=== PATIENT | male | born 1935 | race Caucasian/White ===

== ENCOUNTER 2024-06-09 15:45 | Observation (INO) | payer OTHER, SELFPAY ==
[2024-06-09 09:03] VITALS: BP 124/86
--- NOTE | 2024-06-09 09:30 | ED.GENMED ---
History of Present Illness
General
Chief Complaint: Musculo-Skeletal Complaint
Time Seen by Provider: 06/09/24 09:09
History of Present Illness
History of Present Illness:
89-year-old male with history of arthritis, CAD status post CABG, A-fib on Coumadin and sotalol presenting for left ankle pain. Patient reports pain ongoing for several days, however today had difficulty going from sitting to standing position and
bearing weight. Son at bedside notes chronic issues with arthritis and chronic back pain, recently started on tramadol, so has had underlying issues with musculoskeletal pain. Denies any numbness or tingling to the foot or ankle. Denies any
fever. Does report history of gout in the past. Denies additional acute medical complaints such as chest pain, difficulty breathing, abdominal pain. Has not tried anything for pain today.
Phy Exam
Physical Exam
Physical Exam:
General: Well-appearing, no clinical signs of dehydration, nontoxic and in no acute distress
HEENT: protecting airway
Neck: appears supple
CV: Normal heart rate, regular rhythm, no evidence of cyanosis
Resp: No accessory muscle use, no increased work of breathing
Abd: no distension
Extremities: Generalized swelling to bilateral ankles, symmetric. No erythema or warmth to ankle joints. Tenderness to the left lateral ankle with range of motion limited secondary to pain. Distal sensation and pulses intact.
Neuro: alert, no focal neurologic deficit
: deferred
Rectal: deferred
Psych: Normal affect
Skin: Intact emergency
Course
Orders/Labs/Results
Orders:
Orders
06/09/24 09:10
Ankle, left 3 view CR [CR Ankle - Left Min 3 Views ] Urgent
Comment:
Reason For Exam: pain no injury
PT Consult [Pt Eval And Treat] Urgent
Activity Level: Ambulate
06/09/24 09:26
Foot, Left 3 View [CR Foot - Left Min 3 Views] Urgent
Comment:
Reason For Exam: generalized pain
06/09/24 09:34
Tramadol HCl [Ultram] 50 mg PO NOW STA
06/09/24 09:57
CRP [C-Reactive Protein] Urgent
Complete Blood Count/With Diff Urgent
Comprehensive Metabolic Panel Urgent
ESR [Erythrocyte Sed Rate] Urgent
Prothrombin Time Urgent
Uric Acid Urgent
06/09/24 11:44
HYDROmorphone [Dilaudid] 1 mg IV NOW STA
06/09/24 12:26
Case Management Consult ONCE
Case Management Consult: Usp Placement
06/09/24 12:31
CT Lower Ext W/o Iv Cont Lt Urgent
Comment:
Reason For Exam: ankle, pain, unable to bear weight
06/09/24 12:43
Fluid Culture with Gram Stain Urgent
TEO Source: Joint Fluid
Specimen Description:
Date Specimen was Collected: 06/09/24
Time Specimen was Collected: 12:37
Abnormal Lab Results
06/09/24
09:57
RBC 3.77 L 10^6/uL
(4.70-6.10)
Hgb 11.5 L g/dL
(13.0-18.0)
Hct 35.3 L %
(39.0-52.0)
MCHC 32.6 L g/dL
(33.0-37.0)
Plt Count 110 L 10^3/uL
(130-400)
MPV 11.3 H fL
(7.4-10.4)
Immature Gran % 0.6 H %
(0-0.5)
ESR 38 H mm/hour
(0-20)
PT 35.0 H Sec
(11.4-14.6)
BUN 35 H mg/dl
(9-20)
Creatinine 1.4 H mg/dL
(0.7-1.3)
Glucose 105 H mg/dl
(70-99)
Total Bilirubin 1.5 H mg/dl
(0.2-1.3)
C-Reactive Protein 42.50 H mg/L
(0.0-10.00)
06/09/24 09:57
06/09/24 09:57
Vital Signs
Initial and Last Documented VS:
Initial Vital Signs
Temp Pulse Resp BP Pulse Ox
98.3 F 67 16 124/86 98
06/09/24 09:03 06/09/24 09:03 06/09/24 09:03 06/09/24 09:03 06/09/24 09:03
Last Documented Vital Signs
Temp Pulse Resp BP Pulse Ox
98.3 F 59 18 143/55 97
06/09/24 09:03 06/09/24 11:40 06/09/24 11:40 06/09/24 11:40 06/09/24 11:40
Procedures
Incision/Drainage/Joint Aspiration
Left Ankle:
Preparation: cleaned with alcohol wipe
Type of procedure: aspiration
How much fluid was obtained?: number in mls (10)
Fluid description: bloody
Treatment: bandaid applied
MDM/Problems Addressed
MDM/Problems Addressed:
89-year-old male with history of arthritis presenting for left ankle pain. Vital signs are normal
On exam patient is resting comfortably, no acute distress. Overall benign examination of the left ankle. No present signs for infection without erythema or warmth. No cellulitic changes. No signs of trauma or malalignment. No neurovascular
compromise with intact pulses and sensation. Range of motion is limited from pain. Ultimately suspect pain from underlying arthritis, known history. Lower suspicion for a septic arthritis. Will screen with laboratory analysis. Will obtain x-ray
imaging.
11:10 -x-ray consistent with arthritis. No signs of fracture. No leukocytosis on laboratory analysis, however CRP and ESR elevated. Patient seen by PT, significant pain when trying to bear weight, recommending SNF. In the setting of elevated
inflammatory markers and difficulty with weightbearing, did consider arthrocentesis. Patient consented for procedure, however mentioned that last time he got lidocaine, almost went into shock. In discussion with orthopedics, recommending
arthrocentesis without lidocaine
12:20 -arthrocentesis performed, no purulent fluid obtained, only blood, hemarthrosis. Will send for fluid analysis. Will consult with case management for SNF placement and also obtain a CT of the ankle to rule out occult fracture
13:45 -CT without any definitive fracture. Patient seen by case management, again plan for SNF, however unable to place today. Plan for admission
*Critical Care Note
Total Time (30-74mins, 75-104mins- exclusive of procedures): Not Applicable
ED Attending Note
-
Portions of this chart may have been created with voice recognition software.� Occasional wrong word or��sound alike� substitutions may have occurred due to the inherent limitations of voice recognition software.
Discharge Plan
Departure
Referrals:
Daren Catalan MD [Family Provider] -
Interventions
Interventions:
*Risk Screen - Suicide Last Done: 06/09/24 09:03
*General Assessment Last Done: 06/09/24 09:03
*Neglect/Abuse Screening Last Done: 06/09/24 09:03
*ED COVID-19 Vaccine History Last Done: 06/09/24 09:03
ED-Musculoskeletal Assessment Last Done: 06/09/24 10:51
Discharge Date and Time
Print Language: ROMANSH
[2024-06-09] MEDS: ULTRAM 50 MG PO ×2 (10:00→21:06)
[2024-06-09 10:24] LABS: % Basophils 0.4 % (0-2); % Eosinophils 1.6 % (0-6); % Immature Granulocytes 0.6 % (0-0.5); % Lymphocytes 23.4 % (20.5-51.1); % Monocytes 8.3 % (1.7-9.3); % Neutrophils 65.7 % (42.2-75.2); Absolute Eosinophils 0.1 10^3/uL (0-0.7); Absolute Lymphocytes 1.6 10^3/uL (1.2-3.4); Absolute Monocytes 0.6 10^3/uL (0.1-0.6); Absolute Neutrophils 4.5 10^3/uL (1.4-6.5); Hematocrit 35.3 % (39.0-52.0); Hemoglobin 11.5 g/dL (13.0-18.0); Mean Corp Hgb Conc. 32.6 g/dL (33.0-37.0); Mean Corpuscular Hgb 30.5 pg (27.0-31.0); Mean Corpuscular Volume 93.6 fL (80.0-94.0); Mean Platelet Volume 11.3 fL (7.4-10.4); Nucleated Red Blood Cells % 0 % (-); Platelet Count 110 10^3/uL (130-400); Red Blood Cell Count 3.77 10^6/uL (4.70-6.10); White Blood Cell Count 6.8 10^3/uL (4.8-10.8)
[2024-06-09 10:29] LABS: INR 3.51
[2024-06-09 10:40] LABS: ALT (SGPT) 12 U/L (0-50); AST (SGOT) 25 U/L (17-59); Albumin 3.9 g/dl (3.5-5.0); Alkaline Phosphatase 44 U/L (38-126); Blood Urea Nitrogen 35 mg/dl (9-20); Calcium 9.7 mg/dl (8.4-10.2); Carbon Dioxide 28 mmol/L (22-30); Chloride 99 mmol/L (98-107); Glucose 105 mg/dl (70-99); Potassium 5.1 mmol/L (3.5-5.1); Sodium 138 mmol/L (135-145); Total Bilirubin 1.5 mg/dl (0.2-1.3); Total Protein 6.6 g/dl (6.3-8.2); Uric Acid 6.8 mg/dl (3.5-8.5); eGFR 48.34
[2024-06-09 10:47] LABS: Erythrocyte Sed Rate 38 mm/hour (0-20)
[2024-06-09 11:40] VITALS: BP 143/55
[2024-06-09] MEDS: DILAUDID 1 MG IV (11:52)
--- NOTE | 2024-06-09 14:06 | HPS.HSE ---
Family Physician
-
Family Physician: Daren Catalan
Chief Complaint
-
Left ankle pain
History of Present Illness
Patient is an 89-year-old male with past medical history significant for osteoarthritis, gout, heart failure, CAD with CABG, atrial fibrillation, and BPH who presented to [place] ED for evaluation of new onset left ankle pain with inability to
bear weight. Patient and family assisted in HPI. Patient has had some mild discomfort in left ankle for past few days, this morning it worsened to the point he was unable to ambulate or bear weight. Patient has history of back pain and has been
having increased discomfort in recent days, utilizes a cane to ambulate at home. Patient denies any fever, chills, cough, chest pain, nausea, vomiting, constipation, diarrhea or urinary symptoms.
Medical History
Past Medical History
Past Medical History: Reports Other
Additional Past Medical History:
osteoarthritis
gout
heart failure
CAD
atrial fibrillation
BPH
Past Surgical History: Reports Other
Additional Past Surgical History:
CABG
bilateral rotator cuff repairs
bilateral knee
Social History
Tobacco: Former Smoker (quit 52 years ago)
Alcohol: Occasional
Drug: None
Personal:
Living: With Family
Employment: Retired
Family History
Family History: Not pertinent
Allergies / Home Medications
Allergies reflects when Allergies were last updated in [facility].
Home Medications with original date entered in [facility]
Allergy/Medication List:
Allergies
Allergy/AdvReac Type Severity Reaction Status Date / Time
lidocaine Allergy Severe Anaphylaxis Verified 06/09/24 11:31
acetaminophen [From Percocet] Allergy anxiety, Verified 07/16/10 09:02
restlessness
iodine Allergy pt denies Verified 07/16/10 09:02
iodine
allergy
oxycodone HCl [From Percocet] Allergy anxiety, Verified 07/16/10 09:02
restlessness
contrast dye Allergy Unknown Uncoded 07/16/10 08:42
Home Medications
acetaminophen 325 mg capsule 650 mg PO Q8HPRN PRN pain 06/09/24
fenofibrate micronized 134 mg capsule 134 mg PO DAILY 06/09/24
furosemide 20 mg tablet 20 mg PO DAILY 06/09/24
sotalol 160 mg tablet 160 mg PO DAILY 06/09/24
tamsulosin 0.4 mg capsule (Flomax) 0.4 mg PO DAILY 06/09/24
tamsulosin 0.4 mg capsule (Flomax) 0.4 mg PO HS 06/09/24
tramadol 50 mg tablet 50 mg PO Q6H PRN pain 06/09/24
warfarin 2 mg tablet 2 mg PO DAILY 06/09/24
Review of Systems
-
History Source: Patient and Family
Constitutional: Reports No Symptoms
EENT: Reports No Symptoms
Respiratory: Reports No Symptoms
Cardiac: Reports No Symptoms
Abdomen/GI: Reports No Symptoms
: Reports No Symptoms
Musculoskeletal: Reports Joint Pain (left ankle), Joint Swelling (left ankle) and Edema (bilateral ankles and feet)
Skin: Reports No Symptoms
Neurological: Reports No Symptoms
Endocrine: Reports No Symptoms
Hematologic/Lymphatic: Reports No Symptoms
Psych: Reports No Symptoms
Physical Exam
Vital Signs
Vital Signs
Temp Pulse Resp BP Pulse Ox
98.3 F 59 18 143/55 97
06/09/24 09:03 06/09/24 11:40 06/09/24 11:40 06/09/24 11:40 06/09/24 11:40
Physical Exam
General: Well Developed, Well Nourished, No Apparent Distress, Comfortable and Conversant
HEENT: NormoCephalic, Moist mucous membranes, Atraumatic, Nose Appears Normal, Ears Appear Normal and Neck Nontender
Respiratory: Clear and Non Labored Respirations
Cardiac: S1/S2 and Regular Rhythm; No Murmur, Rub or Gallop
Breast: Deferred by me
GI: Soft, Non Tender, Non Distended and Normal Bowel Sounds; No Organomegaly
Rectal: Deferred by Provider
Genito-urinary: Deferred by me
Musculoskeletal: No Clubbing, No Cyanosis, Edema, Left Lower Extremity (ankle and foot) and Edema, Right Lower Extremity (ankle and foot )
Skin: Warm and IV/Catheter Site; No Rash
Neuro: Awake, Alert, AO x 3 and Nonfocal/grossly intact
Psych: Calm
Laboratory Results
-
06/09/24 09:57
06/09/24 09:57
Laboratory Results
PT 35.0 Sec (11.4-14.6) H 06/09/24 09:57
INR 3.51 06/09/24 09:57
Total Bilirubin 1.5 mg/dl (0.2-1.3) H 06/09/24 09:57
AST 25 U/L (17-59) 06/09/24 09:57
ALT 12 U/L (0-50) 06/09/24 09:57
Alkaline Phosphatase 44 U/L (38-126) 06/09/24 09:57
Data Reviewed
-
Diagnostic Radiology: Report Reviewed by me (L Ankle: No acute fracture or malalignment; Foot: No acute osseous abnormality identified.)
CT Scan: Report Reviewed by me (Lower L Extremity: No definitive acute fracture identified.. Mild tibiotalar chondrocalcinosis Moderate edematous change of the soft tissues mostly of the left foot)
Lab Data: Labs Reviewed by me (BUN 35, Creat 1.4)
Impression/Plan
-
IMPRESSION/PLAN:
#left ankle pain with edema and inability to bear weight
#ddx gout flare vs. septic arthritis
#osteoarthritis
#gout
L Ankle X-Ray: No acute fracture or malalignment.
L Foot X-Ray: No acute osseous abnormality identified. No acute osseous abnormality identified
L Lower ext CT: No definitive acute fracture identified.
Mild tibiotalar chondrocalcinosis
Moderate edematous change of the soft tissues mostly of the left foot
- Admit to Med/Surg for observation
- PT consult
- Case management consult
- Prednisone 40mg
#JANIE vs CKD
BUN 35, Creat 1.4
baseline unknown, family unaware of renal disease
- monitor BMP
#heart failure
- continue furosemide
#atrial fibrillation
- continue warfarin, and sotalol
#BPH
- continue tamsulosin
#CAD
s/p CABG
- continue fenofibrate
Code Status: DNR
DVT Prophylaxis: Warfarin
--- NOTE | 2024-06-09 15:11 | W.PN.UPDATE ---
Addendum entered and electronically signed by Humberto Blue MD 06/09/24 18:12:
INR 3.5. Coumadin held for tonight.
Original Note:
Update Note
Progress Note Update
This is an addendum to the H&P written by Edel Frank on 06/09/2024. Patient seen and examined independently with ORTHOPEDIC TECH.
89-year-old male past medical history of gout, CAD status post CABG, A-fib on Coumadin, arthritis, CHF, BPH, presenting with left ankle pain for few days with difficulty bearing weight.
Inflammatory markers elevated. X-ray of the foot showed no acute abnormality. Patient underwent arthrocentesis with drainage of 10 cc of blood. Fluid studies sent. Ortho recommended CT scan which showed no evidence of fracture.
Labs show likely CKD.
Presentation consistent with gout. Will start prednisone. PT/OT and case management for rehab placement.
[2024-06-09 15:30] VITALS: BP 125/81
--- NOTE | 2024-06-09 16:10 | CM ---
CM met with patient and family in room. Patient and family would prefer [facility] for discharge. CM attempted placement at [facility] and [facility] . There were no available beds. CM will sent a referral to [facility] for consideration.
PLAN: SNF
[2024-06-09 17:28] VITALS: BP 146/77
--- NOTE | 2024-06-09 18:10 | PTCARENOTE ---
Pt was received from ED. Pt stood up and pivoted to the bed with assistance of 2 and a RW. Severe pain on left ankle. Pt resting in bed, continuing to have pain. Waiting for pain medications to be confirmed by pharmacy. Pt ordering dinner. Call [facility]
in reach.
[2024-06-09] MEDS: DILAUDID 0.5 MG IV ×2 (18:26→23:09)
[2024-06-09] MEDS: DELTASONE 40 MG PO (18:26)
[2024-06-09 19:59] VITALS: BP 116/57
[2024-06-09] MEDS: FLOMAX 0.4 MG PO (20:02)
[2024-06-09] MEDS: BETAPACE 160 MG PO (20:02)
[2024-06-09 23:43] VITALS: BP 130/64
[2024-06-10] VITALS (8 sets, daily range): BP systolic 101–118; BP diastolic 52–62; PULSE 51; BMI 30.7
[2024-06-10 07:57] LABS: Hematocrit 32.8 % (39.0-52.0); Hemoglobin 11.2 g/dL (13.0-18.0); Mean Corp Hgb Conc. 34.1 g/dL (33.0-37.0); Mean Corpuscular Volume 90.9 fL (80.0-94.0); Mean Platelet Volume 11.6 fL (7.4-10.4); Platelet Count 104 10^3/uL (130-400); Red Blood Cell Count 3.61 10^6/uL (4.70-6.10); Red Cell Dist. Width 13.5 % (11.5-14.5); White Blood Cell Count 6.7 10^3/uL (4.8-10.8)
[2024-06-10] MEDS: TRICOR 145 MG PO (08:16)
[2024-06-10] MEDS: BETAPACE 160 MG PO (08:16)
[2024-06-10] MEDS: DELTASONE 40 MG PO (08:19)
[2024-06-10 08:32] LABS: PT 52.6 Sec (11.4-14.6)
[2024-06-10 08:36] LABS: Blood Urea Nitrogen 36 mg/dl (9-20); Calcium 9.4 mg/dl (8.4-10.2); Carbon Dioxide 26 mmol/L (22-30); Chloride 98 mmol/L (98-107); Estimated Creatinine Clearance 48 ml/min; Glucose 167 mg/dl (70-99); INR 6.02; Sodium 133 mmol/L (135-145); eGFR 58.17
[2024-06-10] MEDS: LASIX 20 MG PO (09:15)
--- NOTE | 2024-06-10 10:12 | CM ---
Addendum entered by Taye Bernal 06/10/24 15:08:
Pt's spouse confirmed that as of 05/29/24, pt has a Medicare advantage plan and has spoken w/ insurance rep who confirmed that pt's rehab stay will be covered.
CM left message w/ admissions to correct display of insurance as it is showing Medicare as secondary and [employer] as primary.
CM clarified that given advantage plan, pt's OBS status is irrelevant to rehab and will just require an insurance auth
[employer] form reviewed, copy in chart
[facility] pt for [facility] and will confirm bed availability on day of d/c.
Plan: [facility]; pending bed on day of d/c and auth approval
Original Note:
CM spoke w/ pt's spouse regarding d/c plan. Pt is being recommended for rehab at this time, however, pt is currently admitted in OBS status.
CM explained to spouse that rehab would be private pay if pt remains in OBS status. CM explained there is a criteria to meet while in the hospital to be changed to IP status. CM is unsure if pt will remain as OBS but was clear w/ spouse that rehab
would be private cost. Spouse shared they are unable to privately pay for rehab. CM suggested home PT as an alternative option. Pt prev was known to [facility].
CM will cont to follow for d/c planning
Plan: SNF vs home PT
[2024-06-10] MEDS: MEPHYTON 1 MG PO (13:27)
[2024-06-10] MEDS: TYLENOL 650 MG PO ×2 (13:27→23:50)
--- NOTE | 2024-06-10 16:35 | W.PN.HOSP.TC ---
Today's Communication/Plan
-
Orthopedics evaluation pending
Continue steroids
PT OT
1 mg vitamin K
Assessment / Plan
Assessment / Plan
89-year-old male with left ankle pain
CT of the ankle-mild tibiotalar chondrocalcinosis. Moderate edematous changes in the soft tissues mostly in the left foot.
Left ankle no edema. states that the edema has markedly gone down
Cardiovascular system S1-S2 appreciated
Chest clear to auscultation
Abdomen soft and nontender
# Left ankle pain with difficulty ambulating
Likely flare of gout arthrocentesis by ER Only blood obtained
I spoke to hematology lab. The fluid was sent in a syringe to the lab was a large clot. No purple tube. Therefore chemistries and crystals were canceled
Cultures negative so far. Gram stain with no organisms
History of gout in the past
Continue prednisone
Orthopedic evaluation
OT PT evaluation
# Coumadin induced coagulopathy-hold Coumadin. 1 mg p.o. vitamin K. No active bleeding
# Mild tfyzvoaejqzeoldc-pvajtt-rfzviys
# Acute kidney injury-resolving
# Coronary disease-history of bypass
# Paroxysmal atrial fibrillation-continue sotalol. Hold Coumadin
# Enlarged prostate-continue Flomax
# Hyperlipidemia-continue fenofibrate
# Diabetes-check hemoglobin A1c
# DVT prophylaxis-elevated INR
# DNR
Discussed with nursing
Discussed with case management
Discussed with patient's at bedside
Anticipated Discharge: Within 24 hours
Subjective/Interval History
-
Date of Service: June 10, 2024
Objective Data
-
Labs:
Laboratory Results
06/10/24
06:47
WBC 6.7
Hgb 11.2 L
Hct 32.8 L
Plt Count 104 L
PT 52.6 H
INR 6.02 H* D
Sodium 133 L
Potassium 5.0
Chloride 98
Carbon Dioxide 26
BUN 36 H
Creatinine 1.2
Glucose 167 H
Calcium 9.4
Vital Signs:
Vital Signs
Temp Pulse Resp BP Pulse Ox
97.5 F 57 18 105/54 95
06/10/24 15:33 06/10/24 15:33 06/10/24 15:33 06/10/24 15:33 06/10/24 15:33
I&O
06/09/24 06/10/24 06/11/24
06:59 06:59 06:59
Intake Total 480 / 480 240 / 240
Output Total 325 / 325
Balance 155 / 155 240 / 240
--- NOTE | 2024-06-10 17:54 | CON.ORTHO ---
Consultation - Orthopedics
History
HPI: 89-year-old male history of coronary artery disease status post CABG, A-fib on Coumadin presents emergency department with complaints of left ankle pain and difficulty bearing weight. Denied any significant injury. There was some concern in
the emergency department given his increased inflammatory markers of possible septic arthritis. He underwent left ankle joint aspiration in the emergency department that yielded blood. He was admitted to the hospitalist service for further
evaluation and treatment. This evening patient reports that his pain is actually improved substantially. Reports that he is now able to bear some weight. He does report to me that they have made some arrangements for him to go to rehab facility.
Does report remote history of gout.
Allergies / Home Medications
Past medical history: Coronary artery disease status post CABG, A-fib, gout
Past surgical history: CABG, rotator cuff repair, knee surgery
Family history: Not pertinent
Social history: Lives at home with , retired, non-smoker
Allergy/AdvReac Type Severity Reaction Status Date / Time
lidocaine Allergy Severe Anaphylaxis Verified 06/09/24 11:31
acetaminophen [From Percocet] Allergy anxiety, Verified 07/16/10 09:02
restlessness
iodine Allergy pt denies Verified 07/16/10 09:02
iodine
allergy
oxycodone HCl [From Percocet] Allergy anxiety, Verified 07/16/10 09:02
restlessness
contrast dye Allergy Unknown Uncoded 07/16/10 08:42
�Medication �Instructions �Recorded
acetaminophen 325 mg capsule 650 mg PO Q8HPRN PRN pain 06/09/24
acetaminophen 650 mg 1,300 mg PO DAILYPRN PRN mild pain 06/09/24
tablet,extended release
cholecalciferol (vitamin D3) 25 25 mcg PO DAILY Supplement 06/09/24
mcg (1,000 unit) tablet (Vitamin
D3)
fenofibrate micronized 134 mg 134 mg PO DAILY High Cholesterol 06/09/24
capsule
furosemide 20 mg tablet 20 mg PO DAILYPRN PRN swelling 06/09/24
sotalol 160 mg tablet 160 mg PO BID Blood Pressure 06/09/24
tamsulosin 0.4 mg capsule (Flomax) 0.4 mg PO DAILY Urinary Issue 06/09/24
tramadol 50 mg tablet 50 mg PO Q6H PRN pain 06/09/24
warfarin 2 mg tablet 2 mg PO HS Blood Clot Prevention/Tx 06/09/24
Vital Signs / Lab Results
Temp Pulse Resp BP Pulse Ox
97.5 F 57 18 105/54 95
06/10/24 15:33 06/10/24 15:33 06/10/24 15:33 06/10/24 15:33 06/10/24 15:33
06/10/24 06:47
06/10/24 06:47
10 point review systems reviewed and negative unless otherwise stated
General: Pleasant, no acute distress
Musculoskeletal left lower extremity
Skin intact without significant erythematous skin changes overlying the foot and ankle
There is mild to moderate edema noted in the foot
Patient is able to actively plantarflex dorsiflex ankle without significant pain
There is mild tibiotalar joint line tenderness palpation
No substantial medial or lateral malleoli tenderness palpation
Diagnostic studies
X-rays CT scan left ankle reviewed by myself. X-rays show no fractures dislocations. No significant degenerative changes noted on plain radiographs. CT scan reveals some mild chondrocalcinosis some early degenerative changes.
Assessment / Plan
89-year-old male A-fib on Coumadin supratherapeutic, history of gout with left ankle pain. Aspiration yielded blood. Unfortunately aspiration sent to the lab was clotted and unable to perform further testing to include synovial white blood cell
count. Cultures are negative thus far. Suspect gout versus pseudogout given significant proven on prednisone. Also could be result of spontaneous hemarthrosis. Regardless patient's feeling improved. There is no role for acute orthopedic
intervention. Would treat symptomatically. Can follow-up with primary care physician on outpatient basis. Please reach out any questions or concerns.
[2024-06-10] MEDS: FLOMAX 0.4 MG PO (20:13)
[2024-06-10] MEDS: BETAPACE PO (20:21)
[2024-06-11 03:41] VITALS: BP 109/56
[2024-06-11 06:00] VITALS: BMI 30.5
[2024-06-11 07:44] LABS: INR 3.36; PT 33.8 Sec (11.4-14.6)
[2024-06-11 07:45] VITALS: BP 117/70
[2024-06-11] MEDS: LASIX 20 MG PO (09:10)
[2024-06-11] MEDS: BETAPACE 160 MG PO (09:11)
[2024-06-11] MEDS: DELTASONE 40 MG PO (09:11)
[2024-06-11] MEDS: TRICOR 145 MG PO (09:11)
[2024-06-11 11:40] VITALS: BP 130/69
--- NOTE | 2024-06-11 12:07 | CM ---
Addendum entered by Taye Bernal 06/11/24 14:27:
Hospitalist will hold d/c until tomorrow. [facility] will not have available bed tomorrow.
Discussed w/ spouse to consider other accepting facility, [facility]. Spouse agreeable to [facility] if there is an available bed for pt tomorrow.
TT [facility] to confirm if pt can be accepted tomorrow, awaiting response
Will need insurance auth
Plan: [facility], if bed is available tomorrow and pending auth
Original Note:
Chart reviewed for d/c planning. Additional referrals were sent yesterday to [facility] and [facility] per request from spouse.
Spoke w/ Jul[facility], has available bed today if pt can d/c today
Per hospitalist, pt can d/c today
Spoke w/ spouse at bedside w/ nurse, says pt is not feeling well today. Nurse to notify Dr. Pate. TT Dr. Pate regarding this.
Spouse is hopeful pt can d/c today as [facility] is preferred and she has experience w/ the facility.
Will await response from to confirm pt's d/c for today
--- NOTE | 2024-06-11 12:31 | CON.CAR ---
Addendum entered and electronically signed by Elbert Fuentes MD 06/11/24 15:48:
I saw and examined the patient.
The Hospice Liaison's note was reviewed and I agree with the note.
Comment:
GEN: No distress, awake, Ox3
HEENT: supple, anicteric, mmm
LUNGS: scatt rhonchi
CV: Irreg, S1/S2, 1/6 syst LSB, no gallop
ABD: soft, BS+, NT/ND
EXT: +1 edema
NEURO: Gross non-focal
SKIN: No rash
Plan:
89-year-old male with past medical history of CABG in 1995, paroxysmal atrial fibrillation on Coumadin chronic chronic heart failure preserved ejection ration, gout, and hypertension presents to [facility] due to left ankle pain. He has
been treated for gout/pseudogout. We were asked to evaluate him for bradycardia with atrial fibrillation. The patient currently denies any dizziness or lightheadedness. He has seen 2 previous cardiologists and then transitioned his care to .
[facility].
Records review preserved ejection fraction from the fall. He was previously post to be on sotalol 160 in the a.m. and 80 mg in the p.m.
With his slow heart rate in A-fib we will decrease the sotalol to 120 in the a.m. and 120 in the p.m. We will also evaluate whether switching him to Eliquis is cost feasible.
Continue treatments for gout. Blood pressure stable.
Volume status appears acceptable. Okay to continue low-dose diuretics with gout.
Continue prednisone.
Will review records regarding why not taking statin.
Original Note:
Consultation
Consultation Request
Date/Time Consultation Performed: 06/11/24
Requesting Provider: Dr. Pate
Performing Provider: Cara Sandoval PA-C for Dr. Fuentes
Reason for Consultation: bradycardia
Medical History
-
Chief Complaint: L ankle pain
History of Present Illness:
Patient is an 89 yo M with PMH of CAD status post CABG in 1995, paroxysmal atrial fibrillation on chronic Coumadin therapy, chronic heart failure with preserved EF, gout, osteoarthritis, BPH who presented to [facility] for evaluation of
left ankle pain. Reportedly was unable to bear weight. He was seen in consultation by orthopedics and ankle was aspirated with bloody fluid he is being treated with prednisone for gout versus pseudogout. Cardiology consulted as patient noted to
have baseline heart rates in the 50s, however transiently drops as low as the 30s. He is asymptomatic. He is chronically on sotalol 160 mg twice daily. Patient's reports that he followed in the past with a Dr. Chris Zamudio until recently
when he transitioned his care to see Dr. Alfaro of [place]. Patient and report he goes in and out of A-fib which is tracked through his Fit[employer]. Cardiology consulted for evaluation.
PMH:
PAF
Chronic sotalol therapy
Chronic Coumadin therapy
CAD s/p CABG 1995
Chronic heart failure with preserved EF
HLD
HTN
Gout
OA
BPH
Past Medical History
Past Medical History: Other (in HPI)
Social History
Tobacco: Former Smoker
Alcohol: Occasional
Personal:
Living: With Family
Employment: Retired
Family History
Family History: Reviewed & Not Pertinent
Allergies / Home Medications
Allergy/AdvReac Type Severity Reaction Status Date / Time
acetaminophen [From Percocet] Allergy anxiety, Verified 07/16/10 09:02
restlessness
iodine Allergy pt denies Verified 07/16/10 09:02
iodine
allergy
lidocaine Allergy Anaphylaxis Verified 06/10/24 20:19
oxycodone HCl [From Percocet] Allergy anxiety, Verified 07/16/10 09:02
restlessness
�Medication �Instructions �Recorded �Confirmed �Type
acetaminophen 325 mg capsule 650 mg PO Q8HPRN PRN pain 06/09/24 06/09/24 History
acetaminophen 650 mg 1,300 mg PO DAILYPRN PRN mild pain 06/09/24 06/09/24 History
tablet,extended release
cholecalciferol (vitamin D3) 25 25 mcg PO DAILY Supplement 06/09/24 06/09/24 History
mcg (1,000 unit) tablet (Vitamin
D3)
fenofibrate micronized 134 mg 134 mg PO DAILY High Cholesterol 06/09/24 06/09/24 History
capsule
furosemide 20 mg tablet 20 mg PO DAILYPRN PRN swelling 06/09/24 06/09/24 History
sotalol 160 mg tablet 160 mg PO BID afib 06/09/24 06/09/24 History
tamsulosin 0.4 mg capsule (Flomax) 0.4 mg PO DAILY Urinary Issue 06/09/24 06/09/24 History
tramadol 50 mg tablet 50 mg PO Q6H PRN pain 06/09/24 06/09/24 History
warfarin 2 mg tablet 2 mg PO HS Blood Clot Prevention/Tx 06/09/24 06/09/24 History
Review of Systems
-
History Source: Patient and Family
All other systems: Negative unless noted
Physical Exam
Vital Signs
Temp Pulse Resp BP Pulse Ox
97.4 F 58 20 130/69 98
06/11/24 11:54 06/11/24 11:40 06/11/24 11:40 06/11/24 11:40 06/11/24 11:40
Physical Exam
General: No Apparent Distress, Comfortable and Other (sitting in chair)
HEENT: Normocephalic, Anicteric and Moist Mucous Membranes
Respiratory: Other (no audible wheezes)
Cardiac: Irregular Rhythm (on tele)
Musculoskeletal: Edema (trace of B/L LE)
Skin: Warm and Dry
Neuro: AO x 3
Impression / Plan
-
Primary Features Reporter: Previously Dr. Chris Zamudio of [facility], most recently Dr. Alfaro of [place]
Assessment:
Presentation with L ankle pain
Pseudogout vs Gout
Bradycardia
RBBB
PAF
Chronic sotalol therapy
Chronic Coumadin therapy
History of bradycardia
CAD s/p CABG 1995
Chronic heart failure with preserved EF
HLD
HTN
Gout
OA
BPH
Plan:
-Patient admitted for left ankle pain and is being treated for pseudogout versus gout per primary service and orthopedics, and reports improvement since admission.
-Cardiology consulted today as noted on telemetry to have baseline heart rates in the 50s, however with transient drops into the 30s. He is in atrial fibrillation. Patient asymptomatic.
-Chronically on sotalol 160 mg twice daily.
-EKG ordered by me. In rate controlled atrial fibrillation with right bundle branch block. No prior for comparison
-Coumadin on hold as INR was 6.02 on 06/10, improved to 3.36 on 06/11. Listed as being on 2 mg p.o. nightly as an outpatient
-Requested records from Dr. Alfaro's office for review
-Would consider decreasing sotalol dosing. Ultimately would consider transitioning to alternative antiarrhythmic drug agent, as does not appear to be maintaining sinus rhythm however would defer to his primary grievance manager
-Pending records, could consider check echo
-Check TSH
-Discussed with nursing
-Discussed with patient and at bedside
Data Reviewed
-
EKG: Tracing Personally Visualized and interpreted
Labs: Labs Reviewed by me
Old Records: Requested
[2024-06-11 13:20] LABS: Hematocrit 36.9 % (39.0-52.0); Hemoglobin 12.3 g/dL (13.0-18.0); Mean Corp Hgb Conc. 33.3 g/dL (33.0-37.0); Mean Corpuscular Hgb 30.4 pg (27.0-31.0); Mean Corpuscular Volume 91.3 fL (80.0-94.0); Mean Platelet Volume 11.4 fL (7.4-10.4); Platelet Count 149 10^3/uL (130-400); Red Blood Cell Count 4.04 10^6/uL (4.70-6.10); Red Cell Dist. Width 13.3 % (11.5-14.5); White Blood Cell Count 9.7 10^3/uL (4.8-10.8)
[2024-06-11 13:44] LABS: Blood Urea Nitrogen 48 mg/dl (9-20); Calcium 10.3 mg/dl (8.4-10.2); Carbon Dioxide 27 mmol/L (22-30); Chloride 96 mmol/L (98-107); Estimated Creatinine Clearance 48 ml/min; Glucose 109 mg/dl (70-99); Potassium 4.8 mmol/L (3.5-5.1); Sodium 134 mmol/L (135-145); eGFR 58.17
--- NOTE | 2024-06-11 13:59 | W.PN.HOSP.TC ---
Today's Communication/Plan
-
Cardiology evaluation
Assessment / Plan
Assessment / Plan
89-year-old male with left ankle pain
CT of the ankle-mild tibiotalar chondrocalcinosis. Moderate edematous changes in the soft tissues mostly in the left foot.
Left ankle no edema. states that the edema has markedly gone down
Cardiovascular system S1-S2 irregular
Chest clear to auscultation
Abdomen soft and nontender
# Left ankle pain with difficulty ambulating
Likely flare of gout arthrocentesis by ER Only blood obtained
I spoke to hematology lab. The fluid was sent in a syringe to the lab was a large clot. No purple tube. Therefore chemistries and crystals were canceled
Cultures negative so far. Gram stain with no organisms
History of gout in the past
Continue prednisone
Orthopedic evaluation appreciated
OT PT evaluation
# Coumadin Induced Coagulopathy- Hold Coumadin. 1 mg p.o. vitamin K given 06/10/24. No active bleeding. INR 3.36.
# Bradycardia-on sotalol. Request cardiology evaluation. Patient sees all the doctors at [place]
EKG reviewed by me atrial fibrillation with rates in 60s
# Mild cvfdmgteoroezamu-mhblth-rwdginp- Better
# Acute kidney injury-resolving
# Coronary disease-history of bypass
# Paroxysmal atrial fibrillation-continue sotalol. Hold Coumadin.
# Enlarged prostate-continue Flomax
# Hyperlipidemia-continue fenofibrate
# Diabetes-check hemoglobin A1c
# DVT prophylaxis-elevated INR
# DNR
Discussed with nursing
Discussed with case management
Anticipated Discharge: Within 24 hours
Subjective/Interval History
-
Date of Service: June 11, 2024
Objective Data
-
Labs:
Laboratory Results
06/11/24 06/11/24
07: 12:27
WBC 9.7
Hgb 12.3 L
Hct 36.9 L
Plt Count 149 D
PT 33.8 H
INR 3.36 D
Sodium 134 L
Potassium 4.8
Chloride 96 L
Carbon Dioxide 27
BUN 48 H
Creatinine 1.2
Glucose 109 H
Calcium 10.3 H
Vital Signs:
Vital Signs
Temp Pulse Resp BP Pulse Ox
97.4 F 58 20 130/69 98
06/11/24 11:54 06/11/24 11:40 06/11/24 11:40 06/11/24 11:40 06/11/24 11:40
I&O
06/10/24 06/11/24 06/12/24
06:59 06:59 06:59
Intake Total 480 / 480 840 / 840 420 / 420
Output Total 325 / 325 1250 / 1250
Balance 155 / 155 -410 / -410 420 / 420
--- NOTE | 2024-06-11 14:54 | W.PN.UPDATE ---
Update Note
Progress Note Update
records reviewed from Dr. Alfaro including EKG and office visit 03/14/24 and 05/06/24. He has paroxysmal atrial fibrillation. AMS office notes have sotalol dose of 160mg QAM and 80mg QPM listed, however confirmed with patient that he is indeed taking
160mg BID at home and he states this dose has not changed in the last several months. would consider decreasing dose. also has reportedly had labile INRs as OP and even during this admission. will have CM assess cost to patient of eliquis and
consider transitioning. Recent echo from fall of 2023 reportedly showed normal EF and no RWMA. History of CABG x4 in 1995.
[2024-06-11 15:17] LABS: TSH Reflex To Free T4 4.52 uIU/ml (0.47-4.68)
[2024-06-11 15:29] VITALS: BP 122/67
[2024-06-11 19:39] VITALS: BP 118/77
[2024-06-11] MEDS: BETAPACE 120 MG PO (19:57)
[2024-06-11] MEDS: FLOMAX 0.4 MG PO (19:58)
[2024-06-11] MEDS: TYLENOL 650 MG PO (21:10)
[2024-06-11 23:55] VITALS: BP 120/74
[2024-06-12] MEDS: ULTRAM 50 MG PO ×2 (02:56→19:57)
[2024-06-12 04:10] VITALS: BP 112/54
[2024-06-12 07:05] VITALS: BP 121/66
[2024-06-12] MEDS: LASIX 20 MG PO (07:59)
[2024-06-12] MEDS: DELTASONE 40 MG PO (08:00)
[2024-06-12] MEDS: BETAPACE 120 MG PO ×2 (08:00→19:57)
[2024-06-12] MEDS: TRICOR 145 MG PO (08:00)
[2024-06-12 10:16] LABS: Glycohemoglobin (HgbA1c) 6.3 % (4.0-5.6)
[2024-06-12 10:16] LABS: INR 2.34; PT 26.1 Sec (11.4-14.6)
[2024-06-12 11:39] VITALS: BP 123/67
--- NOTE | 2024-06-12 12:53 | CM ---
Addendum entered by Taye Bernal 06/12/24 13:00:
[facility] is able to accept pt tomorrow.
CM to begin insurance auth
Updated hospitalist
[facility]
Report: [phone]

Plan: [facility] tomorrow pending auth approval
Original Note:
Med fink check for Eliquis 5mg BID.
CM called [employer]. Spoke w/ rep.
Retail fink for 30 days- $17.64, 90 days- $40
Mail order fink for 30 days- $17.64, 90 days- $40
Updated ordering physician
--- NOTE | 2024-06-12 13:05 | W.PN.CARDCBS ---
Addendum entered and electronically signed by Elbert Fuentes MD 06/12/24 16:55:
I saw and examined the patient.
The Shank Rander's note was reviewed and I agree with the note.
Comment:
GEN: No distress, awake, Ox3
HEENT: supple, anicteric, mmm
LUNGS: CTA, no wheezes/rales
CV: Irreg, S1/S2, 1/6 syst LSB, no gallop
ABD: soft, BS+, NT/ND
EXT: No edema
NEURO: Gross non-focal
SKIN: No rash
Plan:
Ventricular rates remain stable in the 50-60 range. Continue lower dose of sotalol 120 mg p.o. twice daily. Would consider switching to Eliquis.
Will continue to remotely follow on telemetry.
Original Note:
Today's Communication / Plan
-
sotalol 120mg BID
if eliquis is cost affordable, would plan to transition coumadin to eliquis when INR less than 2, hopefully in AM.
will arrange OP cardiac follow up
will follow peripherally
Impression / Plan
-
Primary Clinical Tech: Previously Dr. Chris Zamudio of [facility], most recently Dr. Alfaro of [place]
Assessment:
Presentation with L ankle pain
Pseudogout vs Gout
Bradycardia
RBBB
PAF
Chronic sotalol therapy
Chronic Coumadin therapy
History of bradycardia
CAD s/p CABG 1995
Chronic heart failure with preserved EF
HLD
HTN
Gout
OA
BPH
Recent echo from fall at OSH reportedly showed normal EF and no RWMA.
Plan:
-Patient admitted for left ankle pain and is being treated for pseudogout versus gout per primary service and orthopedics, and reports improvement since admission.
-has known PAF on sotalol as OP. by records from primary auto service instructor, was listed as taking sotalol 160mg QAM and 80mg QPM however patient was taking 160mg BID. he also reports he was told if feeling poorly in afib to take 'an extra' so at times was
taking 3 sotalol a day. noted to be bradycardic on tele yesterday. sotalol dose was decreased 06/11 to 120mg BID. HR trends appear to be slightly improved. we discussed not to take additional sotalol therapy without discussing with his auto service instructor
first
-he was initially started on sotalol due to post op afib after CABG in 1995. sotalol does not appear to be successfully maintaining SR any longer. would consider transition to alternative AAD therapy, defer to primary auto service instructor
-he has had labile INRs as OP. reports several weeks ago INR was 10. INR was up as high as 6 this admission. we discussed transition to eliquis. if cost affordable would stop coumadin and transition to eliquis when INR <2, patient and
agreeable. INR 2.34 on 06/12. would be on 5mg BID dosing.
-TSH WNL
-will arrange OP cardiac follow up with Dr. Alfaro
-will follow peripherally
-Discussed with patient and at bedside
Progress Note - Clinical Tech
Subjective
Date of Service: June 12, 2024
no issues overnight
Objective
Labs:
06/11/24 12:27
06/11/24 12:27
Labs
Hgb 12.3 g/dL (13.0-18.0) L 06/11/24 12:27
Hct 36.9 % (39.0-52.0) L 06/11/24 12:27
Plt Count 149 10^3/uL (130-400) D 06/11/24 12:27
PT 26.1 Sec (11.4-14.6) H 06/12/24 09:53
INR 2.34 06/12/24 09:53
Sodium 134 mmol/L (135-145) L 06/11/24 12:27
Potassium 4.8 mmol/L (3.5-5.1) 06/11/24 12:27
BUN 48 mg/dl (9-20) H 06/11/24 12:27
Creatinine 1.2 mg/dL (0.7-1.3) 06/11/24 12:
Glucose 109 mg/dl (70-99) H 06/11/24 12:27
Vital Signs and I&O:
Vital Signs
Temp Pulse Resp BP Pulse Ox
97.5 F 57 18 123/67 98
06/12/24 11:39 06/12/24 11:39 06/12/24 11:39 06/12/24 11:39 06/12/24 11:39
Vital Signs
Temp Pulse Resp BP Pulse Ox
97.5 F 57 18 123/67 98
06/12/24 11:39 06/12/24 11:39 06/12/24 11:39 06/12/24 11:39 06/12/24 11:39
Intake & Output
06/10/24 06/11/24 06/12/24 06/13/24
07:59 07:59 07:59 07:59
Intake Total 720 / 720 600 / 600 900 / 900
Output Total 325 / 325 1250 / 1250
Balance 395 / 395 -650 / -650 900 / 900
Physical Exam
Physical Exam
GEN: No distress, awake, alert, oriented x3. sitting in chair
HEENT: supple, anicteric, mmm, eomi
LUNGS: CTA B/L, no wheezes/rales
CV: Irreg, S1/S2, no murmur
ABD: soft, BS+, NT/ND
EXT: No cyanosis, clubbing. trace edema of B/L LE
NEURO: Gross non-focal
SKIN: Warm, pink, dry. No rash
--- NOTE | 2024-06-12 13:18 | CM ---
Addendum entered by Darlyn Pineda 06/12/24 16:08:
TCB from [facility], precert line at [employer] and requested clinicals be faxed to [phone] instead of previous line.
Clinicals faxed.
Original Note:
Patient accepted at [facility]
NPI#[id number]
Accepting MD: Dr Branch NPI# [id number]
Insurance [facility]- website [employer] for referral sheet
Phone number provider services [phone]
Precett line VM p# [phone]

Spoke with Tamara in Provider services ad referred to precert line, left .
Clinicals faxed to [phone].
Plan: skilled rehab once insurance auth obtained.
[2024-06-12 15:05] VITALS: BP 132/64
--- NOTE | 2024-06-12 15:41 | W.PN.HOSP.TC ---
Today's Communication/Plan
-
Discharge tomorrow
INR in the morning
Assessment / Plan
Assessment / Plan
89-year-old male with left ankle pain
CT of the ankle-mild tibiotalar chondrocalcinosis. Moderate edematous changes in the soft tissues mostly in the left foot.
Left ankle no edema.
Cardiovascular system S1-S2 irregular
Chest clear to auscultation
Abdomen soft and nontender
# Left ankle pain with difficulty ambulating
Likely flare of gout arthrocentesis by ER Only blood obtained
I spoke to hematology lab. The fluid was sent in a syringe to the lab was a large clot. No purple tube. Therefore chemistries and crystals were canceled
Cultures negative so far. Gram stain with no organisms
History of gout in the past
Continue prednisone
Orthopedic evaluation appreciated
OT PT
# Coumadin Induced Coagulopathy- Hold Coumadin. 1 mg p.o. vitamin K given 06/10/24. No active bleeding. INR 2.3
Discussed with family regarding starting Eliquis tomorrow if the INR is less than 2
# Bradycardia-on sotalol. Request cardiology evaluation. Patient sees all the doctors at [facility]
Sotalol dose decreased
# Mild xdpzgeyoiqdhbkrk-yfbxug-fowlkem- Better
# Acute kidney injury-resolving
# Coronary disease-history of bypass
# Paroxysmal atrial fibrillation-continue sotalol at the reduced dose. Hold Coumadin. Start Eliquis tomorrow if INR is less than 2
# Enlarged prostate-continue Flomax
# Hyperlipidemia-continue fenofibrate
# Diabetes-hemoglobin A1c 6.3
# DVT prophylaxis-elevated INR
# DNR
Discussed with nursing
Discussed with case management
Discussed with patient's and son at bedside
Discussed with cardiology
Discussed with physical therapy
Time spent over 50 minutes
Anticipated Discharge: Within 24 hours
Subjective/Interval History
-
Date of Service: June 12, 2024
Objective Data
-
Labs:
Laboratory Results
06/12/24
09:53
PT 26.1 H
INR 2.34
Vital Signs:
Vital Signs
Temp Pulse Resp BP Pulse Ox
97.5 F 57 18 123/67 98
06/12/24 11:39 06/12/24 11:39 06/12/24 11:39 06/12/24 11:39 06/12/24 11:39
I&O
06/11/24 06/12/24 06/13/24
06:59 06:59 06:59
Intake Total 840 / 840 900 / 900
Output Total 1250 / 1250
Balance -410 / -410 900 / 900
[2024-06-12 19:38] VITALS: BP 135/72
[2024-06-12] MEDS: FLOMAX 0.4 MG PO (19:57)
[2024-06-12 23:30] VITALS: BP 131/72
[2024-06-13 03:45] VITALS: BP 124/57
[2024-06-13] MEDS: ULTRAM 50 MG PO (03:47)
[2024-06-13 06:00] VITALS: BMI 29.1
[2024-06-13 07:26] VITALS: BP 117/69
[2024-06-13] MEDS: BETAPACE 120 MG PO (07:54)
[2024-06-13] MEDS: TRICOR 145 MG PO (07:54)
[2024-06-13] MEDS: DELTASONE 40 MG PO (07:55)
[2024-06-13] MEDS: LASIX 20 MG PO (07:55)
[2024-06-13 08:11] LABS: INR 2.66; PT 28.7 Sec (11.4-14.6)
[2024-06-13 09:40] VITALS: BP 121/64; PULSE 54; O2SAT 96
--- NOTE | 2024-06-13 10:36 | CM ---
CM called pre cert line at [employer] p# [phone] for update on auth status.
CM spoke w/ rep, at this time auth is still pending. Confirmed receipt of clinicals faxed yesterday
Pending ref # [id number]
Updated pt's daughter via phone and [facility]
Report: [phone]

Plan: [facility] once auth is obtained
[2024-06-13] MEDS: PROTONIX 40 MG PO (10:48)
--- NOTE | 2024-06-13 13:08 | CM ---
Addendum entered by Taye Bernal 06/13/24 13:27:
Updated hospitalist on auth approval, agreeable to d/c today
Auth info shared w/ [facility] via [facility] and updated in [facility]
Will need ambulance transport, forms faxed to [address] [place] [address] clerk to arrange
Family updated
IMM reviewed, copy on chart
[facility]
Report: [phone]

Plan: [facility] via ambulance
Original Note:
Auth for skilled rehab at [facility]
Auth# [id number]
Start date 06/13/24, LCD 06/26/24, NRD 06/25/24
will need admission notification faxed to insurance on admission.
Reviewer is [facility] phone # [phone] x [phone]
Fax updates to [facility] at [phone]
--- NOTE | 2024-06-13 14:06 | W.PN.HOSP.TC ---
Today's Communication/Plan
-
Discharge
Assessment / Plan
Assessment / Plan
89-year-old male with left ankle pain
CT of the ankle-mild tibiotalar chondrocalcinosis. Moderate edematous changes in the soft tissues mostly in the left foot.
Left ankle no edema.
Cardiovascular system S1-S2 irregular
Chest clear to auscultation
Abdomen soft and nontender
ankle edema much better
# Left ankle pain with difficulty ambulating
Likely flare of gout arthrocentesis by ER Only blood obtained
I spoke to hematology lab. The fluid was sent in a syringe to the lab was a large clot. No purple tube. Therefore chemistries and crystals were canceled
Cultures negative so far. Gram stain with no organisms
History of gout in the past
Continue prednisone
Orthopedic evaluation appreciated
OT PT
# Coumadin Induced Coagulopathy- Hold Coumadin. 1 mg p.o. vitamin K given 06/10/24. No active bleeding. INR 2.6
Discussed with family regarding starting Eliquis if the INR is less than 2
# Bradycardia-on sotalol. Request cardiology evaluation. Patient sees all the doctors at [place]
Sotalol dose decreased
# Mild thrombocytopenia--chronic- Better
# Acute kidney injury-resolving
# Coronary disease-history of bypass
# Paroxysmal atrial fibrillation-continue sotalol at the reduced dose. Hold Coumadin. Start Eliquis tomorrow if INR is less than 2
# Enlarged prostate-continue Flomax
# Hyperlipidemia-continue fenofibrate
# Diabetes-hemoglobin A1c 6.3
# DVT prophylaxis-elevated INR
# DNR
Discussed with nursing
Discussed with case management
Discussed with patient's at bedside
More than 30 minutes spent in discharge including
Final examination of the patient
Summarizing hospital stay
Instructions for continuing care to all relevant caregivers
Preparation of discharge records, prescriptions, and referral forms
Total time spent (in minutes): 33 min
Anticipated Discharge: Today
Subjective/Interval History
-
Date of Service: June 13, 2024
Objective Data
-
Labs:
Laboratory Results
06/13/24
07:41
PT 28.7 H
INR 2.66
Vital Signs:
Vital Signs
Temp Pulse Resp BP Pulse Ox
97.8 F 59 20 117/69 96
06/13/24 07:26 06/13/24 07:26 06/13/24 07:26 06/13/24 07:26 06/13/24 11:10
I&O
06/12/24 06/13/24 06/14/24
06:59 06:59 06:59
Intake Total 900 / 900 720 / 720
Balance 900 / 900 720 / 720
--- NOTE | 2024-06-13 14:07 | W.DS.TRANS ---
Addendum entered and electronically signed by Germania Pate MD 06/13/24 16:55:
Dictation- [id number]
Original Note:
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
-
Discharge Instructions:
Sleep Apnea Risk Intermediate
Discharge Diagnosis/Procedures Acute Gout left ankle
Coumadin Induced Coagulopathy
Bradycardia
Acute kidney injury
Coronary disease-history of bypass
Paroxysmal atrial fibrillation
Enlarged prostate
Hyperlipidemia
Diet As tolerated
Activity As tolerated,With assistance
Driving Restrictions No driving
Blood Work Daily INR. CBC and BMP 1 week
Other Services PT,OT
Instructions:
Stand-Alone Forms:
Changes to Home Medications: Yes
Discharge Medications:
DC Medications w/original date entered in [facility]
acetaminophen 325 mg capsule 650 mg PO Q8HPRN PRN pain 06/09/24
cholecalciferol (vitamin D3) 25 mcg (1,000 unit) tablet (Vitamin D3) 25 mcg PO DAILY Supplement 06/09/24
fenofibrate micronized 134 mg capsule 134 mg PO DAILY High Cholesterol 06/09/24
apixaban 5 mg tablet (Eliquis) 5 mg PO BID Blood clot prevention/tx #60 tabs 06/12/24
furosemide 20 mg tablet 20 mg PO DAILY Fluid retention/Swelling #0 tabs 06/12/24
sotalol 120 mg tablet 120 mg PO BID Arrhythmia #60 tabs 06/12/24
tamsulosin 0.4 mg capsule (Flomax) 0.4 mg PO HS Urinary Issue #0 caps 06/12/24
tramadol 50 mg tablet 50 mg PO Q6H PRN moderate pain #8 tabs 06/12/24
pantoprazole 40 mg tablet,delayed release (Protonix) 40 mg PO DAILY Gastrointestinal issue #10 tabs 06/13/24
prednisone 10 mg tablet See Rx Instructions .Route .COMPLEX Gout #18 tabs 06/13/24
Home Medication Changes
Sotalol dose reduced
Coumadin changed to Eliquis
Prednisone and Protonix are new
Pending Results: No
--- NOTE | 2024-06-13 15:22 | PTCARENOTE ---
Addendum entered by Pooja Gaines RN 06/13/24 18:00:
Patient left with ambulance crew to [facility]. Daughter at bedside. IV and tele removed. Patient given copy of medication list.
Original Note:
Report called to KYLE De Los Santos at [facility]. Ambulance metal pickling equipment operator scheduled for 1700. Patient aware. IV and tele removed. Patient awaiting arrival of transport. Daughter at bedside.
[2024-06-13 15:43] VITALS: BP 104/68
== END 2024-06-13 17:27 ==
LOC: 4 EAST ACU 15:45
PROVIDERS: Nurse Practitioner Family; Physician Assistant; ADMITTING PHYSICIAN Hospitalist; ATTENDING PHYSICIAN Hospitalist; CONSULT PHYSICIAN Internal Medicine Cardiovascular Disease; CONSULT PHYSICIAN Orthopaedic Surgery; EMERGENCY PHYSICIAN Student in an Organized Health Care Education/Training Program; FAMILY PHYSICIAN Internal Medicine
DX: M10.072 Idiopathic gout, left ankle and foot (principal); M11.272 Other chondrocalcinosis, left ankle and foot; M25.572 Pain in left ankle and joints of left foot; N17.9 Acute kidney failure, unspecified; D69.6 Thrombocytopenia, unspecified; I11.0 Hypertensive heart disease with heart failure; R00.1 Bradycardia, unspecified; T45.515A Adverse effect of anticoagulants, initial encounter; D68.8 Other specified coagulation defects; R22.42 Localized swelling, mass and lump, left lower limb; I48.0 Paroxysmal atrial fibrillation; I45.10 Unspecified right bundle-branch block; I25.10 Atherosclerotic heart disease of native coronary artery without angina pectoris; E11.9 Type 2 diabetes mellitus without complications; M19.90 Unspecified osteoarthritis, unspecified site; E78.00 Pure hypercholesterolemia, unspecified; I50.30 Unspecified diastolic (congestive) heart failure; N40.0 Benign prostatic hyperplasia without lower urinary tract symptoms; Z95.1 Presence of aortocoronary bypass graft; Z87.891 Personal history of nicotine dependence; Z88.5 Allergy status to narcotic agent; Z88.6 Allergy status to analgesic agent; Z88.4 Allergy status to anesthetic agent; Z91.041 Radiographic dye allergy status; Z79.01 Long term (current) use of anticoagulants; Z66 Do not resuscitate
CPT/HCPCS: 20605; 73610; 73630; 73700; 80048; 80053; 83036; 84443; 84550; 85025; 85027; 85610; 85652; 86140; 87015; 87070; 87205; 93005; 96374; 97116; 97166; 99285; G0378

== ENCOUNTER → 2024-06-14 09:13 | Outpatient (REF) | payer OTHER, SELFPAY ==
[2024-06-14 10:40] LABS: INR 2.68; PT 28.5 Sec (11.4-14.6)
== END ==
LOC: OLABP 09:13
PROVIDERS: ATTENDING PHYSICIAN Family Medicine
DX: R00.1 Bradycardia, unspecified (principal); N17.9 Acute kidney failure, unspecified; I25.10 Atherosclerotic heart disease of native coronary artery without angina pectoris; I48.0 Paroxysmal atrial fibrillation; E78.5 Hyperlipidemia, unspecified; N40.1 Benign prostatic hyperplasia with lower urinary tract symptoms
CPT/HCPCS: 36415; 85610